=== PATIENT | female | born 1970 | race Caucasian/White ===

== ENCOUNTER → 2016-07-14 | Outpatient (CLI) | payer BC | LOC: LAB 12:25 | DX: M89.8X8 Other specified disorders of bone, other site (principal); R10.2 Pelvic and perineal pain ==

== ENCOUNTER → 2016-09-03 | Outpatient (CLI) | payer BC | LOC: RAD 13:59 | DX: M54.89 Other dorsalgia (principal); R53.1 Weakness ==

== ENCOUNTER 2019-02-21 09:00 | Outpatient (RCR) | payer OTHER | END 2019-02-21 09:30 | disposition home or self-care (01) | LOC: PT 09:00 | DX: E55.9 Vitamin D deficiency, unspecified (principal); M54.2 Cervicalgia ==

== ENCOUNTER 2021-11-14 13:58 | Outpatient (RCR) | payer OTHER | END 2021-12-12 | disposition home or self-care (01) | LOC: PT | DX: M54.12 Radiculopathy, cervical region (principal) ==

== ENCOUNTER 2021-12-18 11:00 | Outpatient (RCR) | payer OTHER | END 2022-01-12 | disposition home or self-care (01) | LOC: PT | DX: M54.12 Radiculopathy, cervical region (principal) ==

== ENCOUNTER 2022-02-11 07:55 | Outpatient (RCR) | payer OTHER | END 2022-02-12 | disposition home or self-care (01) | LOC: PT | DX: M54.2 Cervicalgia (principal) ==

== ENCOUNTER 2022-03-19 13:03 | Outpatient (RCR) | payer OTHER | END 2022-04-14 | disposition still patient (30) | LOC: PT | DX: M54.12 Radiculopathy, cervical region (principal) ==

== ENCOUNTER 2022-04-17 13:30 | Outpatient (RCR) | payer OTHER | END 2022-05-14 | disposition home or self-care (01) | LOC: PT | DX: M54.12 Radiculopathy, cervical region (principal) ==

== ENCOUNTER 2022-06-17 08:00 | Outpatient (RCR) | payer OTHER | END 2022-07-15 | disposition home or self-care (01) | LOC: PT | DX: M54.12 Radiculopathy, cervical region (principal) ==